=== PATIENT | female | born 1995 | race American Indian/Alaskan Native ===

== ENCOUNTER 2018-11-30 17:56 | Inpatient (IN) | payer MEDICAID ==
[2018-11-30] MEDS ORDERED: BRETHINE SUB-Q PRN (18:17)
[2018-11-30] MEDS ORDERED: MINERAL OIL PO PRN (18:17)
[2018-11-30] MEDS ORDERED: XYLOCAINE 2% INFILTRATI ONE (18:17)
[2018-11-30] MEDS ORDERED: SUBLIMAZE IV PRN (18:17)
[2018-11-30] MEDS ORDERED: ZOFRAN IV PRN (18:17)
--- NOTE | 2018-11-30 18:24 | History and Physical Report ---
History of Present Illness Date of examination: 11/30/18 Date of admission: 11/30/18 17:56 Chief complaint: Sent from office for induction/augmentation History of present illness: EDC Confirmation: 11/22/2018 Past History : 2 Term Births: 1 Premature Births: 0 Living Children: 1 Para: 1 Mult. Births: 0 Prev : 0 Aborta: 0 Elect. Ab: 0 Spont. Ab: 0 Ectopics: 0 # 1 Delivery date: 05/04/2015 Weeks Gestation: term labor: no Delivery type: Anesthesia type: epidural Delivery location: [place] Infant Sex: Female weight: 7#8 Past Medical History: Negative Past Medical History Past Surgical History: negative Past Medical History Anesthesia Complications: negative Anemia: negative Autoimmune Disorder: negative Bleeding Disorder: negative Blood Transfusions: negative Breast Disease: negative Diabetes: negative Heart Disease: negative Hypertension: negative Hepatitis/Liver Disease: negative Kidney Disease/UTI: negative Neurologic/Epilepsy/Migraines: negative Phlebitis/Varicosities: negative Psychiatric: negative Pulmonary Disease/Asthma: negative Thyroid Disease: negative Hospitalizations: negative 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 of genital herpes: no Partner hx. of genital herpes: no Rash, Viral, or Febrile illness since last LMP? no Varicella/Chicken Pox Status: Previous Disease TB Risk: no Genetic History Congenital Heart Defect: Mom: no Dad: no Serene Disease: Mom: no Dad: no Thalassemia Mom: no Dad: no Neural Tube Defect Mom: no Dad: no Down's Syndrome Mom: no Dad: no Sriram-Sachs Mom: no Dad: no Sickle Cell Disease/Trait Mom: no Dad: no Hemophilia Mom: no Dad: no Muscular Dystrophy Mom: no Dad: no Cystic Fibrosis Mom: no Dad: no [place] Chorea Mom: no Dad: no Mental Retardation Mom: no Dad: no Fragile X Mom: no Dad: no Other Genetic/Chromosomal Disorder Mom: no Dad: no Child w/other defect Mom: no Dad: no Enviromental Exposures Enviromental Exposures Reviewed Xray Exposure: no Medication, drug, or alcohol use since LMP: no Chemical/Other Exposure: no Exposure to Cat Liter: no Hx of Parvovirus (Fifth Disease): no Occupational Exposure to Children: none Current Allergies (reviewed today): No known allergies Past History Past Medical History: other (see HPI) Past Surgical History: other (see HPI) 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: other (see HPI) Family/Genetic History: other (see HPI) Social history: other (see HPI) - Obstetrical History Expected Date of Delivery: 11/22/18 Actual Gestation: 41 Week(s) 1 Day(s) : 2 Para: 1 Hx # Term Pregnancies: 1 Number of Pregnancies: 0 Spontaneous Abortions: 0 Induced : 0 Number of Living Children: 1 Medications and Allergies Allergies Allergy/AdvReac Type Severity Reaction Status Date / Time No Known Allergies Allergy Unverified 11/30/18 19:08 Home Medications Medication Instructions Recorded Confirmed Last Taken Type No Known Home Medications [No 11/30/18 11/30/18 Unknown History Reported Home Medications] Review of Systems All systems: negative - Physical Exam Breasts: Positive: normal Cardiovascular: Regular rate Lungs: Positive: Clear to auscultation Abdomen: Positive: normal appearance, soft Genitourinary (Female): Positive: normal external genitalia, normal perenium - Obstetrical FHR: category 2 Uterine Contraction Monitor Mode: External Cervical Dilatation: 4 Cervical Effacement Percentage: 70 station: -1 Uterine Contraction Pattern: Regular Uterine Tone Measurement Phase: Contraction Uterine Contraction Intensity: Mild Results All other labs normal. Assessment and Plan 23y/o @ 41+1, sent from office for nonreactive NST, possibly early labor SVE 3.5/60/-2 in office. EFW last week in office 8#2oz. GBS +. Admission orders in EMR. Anticipate . - Patient Problems (1) GBS (group B Streptococcus carrier), +RV culture, currently Current Visit: Yes Status: Acute Plan to address problem: antibiotics q4h until delivery (2) Non-reactive NST (non-stress test) Current Visit: Yes Status: Acute Plan to address problem: induce/augment labor with pitocin continuos EFM (3) 41 weeks gestation of Current Visit: Yes Status: Acute
[2018-11-30] MEDS ORDERED: PITOCin/NS 20 UNIT/1000ML DRIP 20 UNITS/1,000 ML BAG IV SCH (19:00)
[2018-11-30] MEDS ORDERED: AMPICILLIN/NS 2 GM/100 ML 2 GM/100 ML BAG IV ONE (20:00)
[2018-11-30] MEDS ORDERED: PITOCin/NS 30 UNIT/500ML 30 UNITS/500 ML BAG IV SCH (20:00)
[2018-11-30 20:15] LABS: Hematocrit 34.6 % (30.3-42.9); Hemoglobin 11.7 gm/dl (10.1-14.3); Mean Corpuscular HGB Conc 34 % (30-34); Mean Corpuscular Volume 88 fl (79-97); Platelet Count 333 K/mm3 (140-440); Red Blood Count 3.92 M/mm3 (3.65-5.03); Red Cell Distribution Width 14.5 % (13.2-15.2)
[2018-11-30] MEDS: LACTATED RINGERS 1,000 ML IV SCH (20:36)
[2018-11-30] MEDS ORDERED: AMPICILLIN/NS 1 GM/50 ML 1 GM/50 ML BAG IV SCH (22:18)
--- NOTE | 2018-12-01 | Progress Note ---
Assessment and Plan patient doing well, desires epidural for pain management. Pitocin currently @ 14mU. Plan to continue titrating pitocin as needed, pelvis feels adequate for size. Anticipate . - Patient Problems (1) GBS (group B Streptococcus carrier), +RV culture, currently Current Visit: Yes Status: Acute (2) Non-reactive NST (non-stress test) Current Visit: Yes Status: Acute (3) 41 weeks gestation of Current Visit: Yes Status: Acute Subjective - Subjective Date of service: 11/30/18 Principal diagnosis: IUP @ 41+1, IOL for nonreassuring NST Interval history: EDC Confirmation: 11/22/2018 Past History : 2 Term Births: 1 Premature Births: 0 Living Children: 1 Para: 1 Mult. Births: 0 Prev : 0 Aborta: 0 Elect. Ab: 0 Spont. Ab: 0 Ectopics: 0 # 1 Delivery date: 05/04/2015 Weeks Gestation: term labor: no Delivery type: Anesthesia type: epidural Delivery location: [place] Infant Sex: Female weight: 7#8 Past Medical History: Negative Past Medical History Past Surgical History: negative Past Medical History Anesthesia Complications: negative Anemia: negative Autoimmune Disorder: negative Bleeding Disorder: negative Blood Transfusions: negative Breast Disease: negative Diabetes: negative Heart Disease: negative Hypertension: negative Hepatitis/Liver Disease: negative Kidney Disease/UTI: negative Neurologic/Epilepsy/Migraines: negative Phlebitis/Varicosities: negative Psychiatric: negative Pulmonary Disease/Asthma: negative Thyroid Disease: negative Hospitalizations: negative 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 of genital herpes: no Partner hx. of genital herpes: no Rash, Viral, or Febrile illness since last LMP? no Varicella/Chicken Pox Status: Previous Disease TB Risk: no Genetic History Congenital Heart Defect: Mom: no Dad: no Serene Disease: Mom: no Dad: no Thalassemia Mom: no Dad: no Neural Tube Defect Mom: no Dad: no Down's Syndrome Mom: no Dad: no Sriram-Sachs Mom: no Dad: no Sickle Cell Disease/Trait Mom: no Dad: no Hemophilia Mom: no Dad: no Muscular Dystrophy Mom: no Dad: no Cystic Fibrosis Mom: no Dad: no [place] Chorea Mom: no Dad: no Mental Retardation Mom: no Dad: no Fragile X Mom: no Dad: no Other Genetic/Chromosomal Disorder Mom: no Dad: no Child w/other defect Mom: no Dad: no Enviromental Exposures Enviromental Exposures Reviewed Xray Exposure: no Medication, drug, or alcohol use since LMP: no Chemical/Other Exposure: no Exposure to Cat Liter: no Hx of Parvovirus (Fifth Disease): no Occupational Exposure to Children: none Current Allergies (reviewed today): No known allergies Patient reports: loss of fluid, vaginal bleeding, movement normal, contractions Objective - Vital Signs Vital Signs: Vital Signs - 12hr 11/30/18 11/30/18 11/30/18 20:08 22:12 23:26 Pulse Rate 92 H 85 100 H Blood Pressure 112/67 113/64 122/77 - Exam Breasts: normal Cardiovascular: Regular rate Lungs: Clear to auscultation, Normal air movement Abdomen: Present: normal appearance, soft Vulva: both: normal Uterus: Present: normal FHR: category 1 Uterine Contraction Monitor Mode: External Cervical Dilatation: 6.5 Cervical Effacement Percentage: 90 station: 0 Uterine Contraction Frequency (min): 2-3 Uterine Contraction Duration: 60 Uterine Contraction Pattern: Regular Uterine Tone Measurement Phase: Contraction Uterine Contraction Intensity: Strong/Firm Extremities: normal Deep Tendon Reflex Grade: Normal +2 - Labs Labs: Laboratory Results - last 24 hr 11/30/18 11/30/18 19:57 19:57 WBC 8.1 RBC 3.92 Hgb 11.7 Hct 34.6 MCV 88 MCH 30 MCHC 34 RDW 14.5 Plt Count 333 Blood Type O POSITIVE Antibody Screen TNR JUDIE Antibody Screen Negative
[2018-12-01] MEDS: LACTATED RINGERS 1,000 ML IV SCH (00:08)
[2018-12-01] MEDS ORDERED: NARCAN 2 MG/2 ML IV PRN (00:45)
--- NOTE | 2018-12-01 00:47 | Anesthesia Consultation ---
Anesthesia Consult and Med Hx Date of service: 12/01/18 - Airway Anesthetic Teeth Evaluation: Good ROM Head & Neck: Adequate Mental/Hyoid Distance: Adequate Mallampati Class: Class II Intubation Access Assessment: Probably Good - Pulmonary Exam CTA: Yes - Cardiac Exam Cardiac Exam: RRR - Pre-Operative Health Status ASA Pre-Surgery Classification: ASA2 Proposed Anesthetic Plan: Epidural, Spinal - Pulmonary Hx Smoking: No Hx Asthma: No Hx Respiratory Symptoms: No SOB: No COPD: No Home Oxygen Therapy: No Hx Pneumonia: No Hx Sleep Apnea: No - Cardiovascular System Hx Hypertension: No Hx Coronary Artery Disease: No Hx Heart Attack/AMI: No Hx Angina: No Hx Percutaneous Transluminal Coronary Angioplasty (PTCA): No Hx Cardia Arrhythmia: No Hx Pacemaker: No Hx Internal Defibrillator: No Hx Valvular Heart Disease: No Hx Heart Murmur: No Hx Peripheral Vascular Disease: No - Central Nervous System Hx Neuromuscular Disorder: No Hx Seizures: No CVA: No Hx Back Pain: Yes Hx Psychiatric Problems: No - Gastrointestinal Hx Ulcer: No Hx Gastroesophageal Reflux Disease: Yes - Endocrine Hx Renal Disease: No Hx End Stage Renal Disease: No Hx Cirrhosis: No Hx Liver Disease: No Hx Insulin Dependent Diabetes: No Hx Non-Insulin Dependent Diabetes: No Hx Thyroid Disease: No Hx Hypothyroidism: No Hx Hyperthyroidism: No - Hematic Hx Anemia: No Hx Sickle Cell Disease: No - Other Systems Hx Alcohol Use: No
--- NOTE | 2018-12-01 00:47 | Anesthesia Day of Surgery ---
Anesthesia Day of Surgery - Day of Surgery Patient Examined: Yes Patient H&P Reviewed: Yes Patient is NPO: Yes Beta Blockers: No Cardiac Clearance: No Pulmonary Clearance: No Terry's Test: N/A
--- NOTE | 2018-12-01 00:47 | Post Anesthesia Evaluation ---
- Post Anesthesia Evaluation Patient Participated: Yes Airway Patent: Yes Stable Respiratory Function: Yes Nausea/Vomiting: No Temp > 96.8F: Yes Pain Manageable: Yes Adequeate Hydration: Yes Anesthesia Complications: No Block Receding Appropriately: Yes Patient on Ventilator: No
[2018-12-01] MEDS ORDERED: fentaNYL-BUPIV 2 MCG/ML-0.125% 200 MCG/100 ML BAG EPIDURAL SCH (01:00)
--- NOTE | 2018-12-01 01:17 | Procedure Note ---
OB Delivery Note - Delivery Date of Delivery: 12/01/18 ( male) Supervisor Weaving: KITTY FOSTER Estimated blood loss: 300cc - Vaginal Delivery presentation: vertex Delivery position: OA Intrapartum events: none Delivery induction: oxytocin Delivery augmentation: rupture of membranes Delivery monitor: internal FHT, internal uterine Route of delivery: Delivery placenta: spontaneous Delivery cord: 3 umbilical vessels Episiotomy: none Delivery laceration: none Anesthesia: none Delivery comments: Called emergently to room, pt sitting up for epidural with urge to push. baby delivered as I entered room. placed skin to skin on mother's abd, 3 vessel cord clamped and cut after cessation of pulsation. Placenta del intact and complete. cord blood collected. Pit to IVF. no laceration to repair. fundus firm, lochia scant. Apgars 9/9, wt 7#3oz. EBL 300. Mother and remain LDR stable. - A at 1 minute: 9 at 5 minutes: 9 Infant Gender: Male (7#3oz)
[2018-12-01] MEDS ORDERED: SODIUM CHLORIDE FLUSH SYRINGE 10 ML IV PRN (05:14)
[2018-12-01] MEDS ORDERED: TUCKS PAD TP PRN (05:14)
[2018-12-01] MEDS ORDERED: PHENERGAN PO PRN (05:14)
[2018-12-01] MEDS ORDERED: LANSINOH TP PRN (05:14)
[2018-12-01] MEDS ORDERED: DULCOLAX PR PRN (05:14)
[2018-12-01] MEDS ORDERED: TYLENOL PO PRN (05:14)
[2018-12-01] MEDS ORDERED: DERMOPLAST TP PRN (05:14)
[2018-12-01] MEDS ORDERED: BENADRYL PO PRN (05:14)
[2018-12-01] MEDS ORDERED: PITOCin/NS 20 UNIT/1000ML DRIP 20 UNITS/1,000 ML BAG IV SCH (05:14)
[2018-12-01] MEDS ORDERED: MILK OF MAGNESIA PO PRN (05:14)
[2018-12-01] MEDS: IBUPROFEN PO SCH ×4 (07:42→23:28)
[2018-12-01] MEDS: COLACE PO SCH ×2 (11:22→23:28)
[2018-12-01] MEDS: PRENATAL VITAMIN PO SCH (11:22)
[2018-12-01 14:35] LABS: Hematocrit 30.5 % (30.3-42.9); Hemoglobin 10.4 gm/dl (10.1-14.3)
[2018-12-02] MEDS: IBUPROFEN PO SCH ×3 (05:42→14:11)
[2018-12-02] MEDS ORDERED: BOOSTRIX IM ONE (06:00)
--- NOTE | 2018-12-02 06:11 | Discharge Summary ---
Providers - Providers Date of Admission: 11/30/18 17:56 Date of discharge: 12/02/18 (pt agrees with d/c) Attending physician: TARAS GALAN Primary care physician: TARAS GALAN Hospitalization Reason for admission: induction of labor, IUP at term Delivery: Episiotomy: none Laceration: none Incision: normal Other procedures: none complications: none Discharge diagnosis: IUP at term delivered [place] baby: male Hospital course: uncomplicated vaginal delivery Pt w/o complaint VSS FF below umb Lochia small perineum intact H&H 05/04 stable Doing well s/p vag delivery P: d/c today with instructions RTO 4 weeks PP care RX EMLA for circ Condition at discharge: Good Disposition: DC-01 TO HOME OR SELFCARE - Discharge Diagnoses (1) (normal spontaneous vaginal delivery) Status: Acute Comment: RTO 4 weeks PP care Plan - Provider Discharge Summary Activity: routine, no sex for 6 weeks, no heavy lifting 4 weeks, no strenuous exercise Diet: routine Instructions: routine Additional instructions: [] Smoking cessation referral if applicable(refer to patient education folder for contact #) [] Refer to [facility]'s [facility] Center Booklet Call your doctor immediately for: * Fever > 100.5 * Heavy vaginal bleeding ( >1 pad per hour) * Severe persistent headache * Shortness of breath * Reddened, hot, painful area to leg or breast * Drainage or odor from incision. * Keep incision clean and dry at all times and follow doctor's instructions regarding bathing/showering - Follow up plan Follow up: TARAS GALAN MD [Primary Care Provider] - 12/31/18 (Congratulations! Please call [phone] to schedule your visit in 4 weeks and your son's circumcision in 1 week. Bring EMLA cream with you to his visit. Do not use at home. Use Motrin/ibuprofen for pain/cramping. Call with concerns. )
[2018-12-02 08:56] VITALS: BP 107/64
[2018-12-02] MEDS: COLACE PO SCH (10:02)
[2018-12-02] MEDS: PRENATAL VITAMIN PO SCH (10:03)
== END 2018-12-02 14:34 | disposition home or self-care (01) | DRG 775 ==
LOC: LD 17:56 → OB 12-01 04:10
PROVIDERS: ADMIT Obstetrics & Gynecology; ATTEND Obstetrics & Gynecology
PROC: 10E0XZZ Delivery of Products of Conception, External Approach (ICD-10-PCS; principal; 2018-12-01)
PROC: 3E033VJ Introduction of Other Hormone into Peripheral Vein, Percutaneous Approach (ICD-10-PCS; 2018-12-01)
DX: O99.824 Streptococcus B carrier state complicating childbirth (principal); O99.62 Diseases of the digestive system complicating childbirth; K21.9 Gastro-esophageal reflux disease without esophagitis; Z3A.41 41 weeks gestation of pregnancy; Z37.0 Single live birth
CPT/HCPCS: 36415; 85014; 85018; 85027; 86592; 86850; 86900; 86901; 96360; G0378; A6250; J0290; J2590; J7120